=== PATIENT | female | born 1955 | race African-American/Black ===

== ENCOUNTER 2021-09-30 12:11 | Emergency (ER) | payer MEDICARE ==
[~2021-09-30] VITALS: Ht 165.1 cm; Wt 56.8 kg
[2021-09-30] MEDS ORDERED: IBUPROFEN 600 MG TABLET PO ONE (13:15)
[2021-09-30 15:02] VITALS: BP 101/62
== END 2021-09-30 15:05 | disposition home or self-care (01) ==
LOC: EMS 12:16
DX: S02.609A Fracture of mandible, unspecified, initial encounter for closed fracture (principal); F14.90 Cocaine use, unspecified, uncomplicated; F17.210 Nicotine dependence, cigarettes, uncomplicated; Y04.0XXA Assault by unarmed brawl or fight, initial encounter; Y93.89 Activity, other specified; Y92.89 Other specified places as the place of occurrence of the external cause; Y99.8 Other external cause status
CPT/HCPCS: 70486; 99284; Z7502; Z7610